=== PATIENT | female | born 1945 | race Caucasian/White ===

== ENCOUNTER 2022-06-12 05:31 | Inpatient (IN) ==
[~2022-06-12 05:31] MED LIST: VANCOMYCIN INJ 1,000 MG in SODIUM CHLORIDE 0.9% 250 ML IV ONE
[2022-06-12] MEDS ORDERED: VANCOMYCIN INJ 1,000 MG in SODIUM CHLORIDE 0.9% 250 ML IV ONE (06:00)
[2022-06-12] MEDS ORDERED: GABAPENTIN 400 MG CAPSULE PO ONE (07:41)
[2022-06-12] MEDS ORDERED: DIAZEPAM 5 MG TABLET PO ONE (07:41)
[2022-06-12] MEDS ORDERED: ACETAMINOPHEN 500 MG TABLET PO ONE (07:41)
[2022-06-12] MEDS ORDERED: FAMOTIDINE 20 MG TABLET PO ONE (07:41)
[2022-06-12] MEDS ORDERED: LACTATED RINGERS 1,000 ML IV SCH (08:00)
[2022-06-12] MEDS ORDERED: BUPIVACAINE 0.5% 50 ML VIAL ONE (08:47)
[2022-06-12] MEDS ORDERED: buprenorphine HCL 0.3 MG/ML VIAL ONE (10:12)
[2022-06-12] MEDS ORDERED: TRANEXAMIC ACID 1,000 MG/10 ML VIAL ONE (10:46)
[2022-06-12] MEDS ORDERED: KETAMINE 500 MG/10 ML VIAL ONE (10:49)
[2022-06-12] MEDS ORDERED: SODIUM CHLORIDE 0.9% 1,000 ML IV ONE (10:52)
[2022-06-12] MEDS ORDERED: DEXMEDETOMIDINE 200 MCG/2 ML VIAL ONE (10:52)
[2022-06-12] MEDS ORDERED: SODIUM CHLORIDE 0.9% 250 ML IV ONE (10:52)
[2022-06-12] MEDS ORDERED: PROMETHAZINE 25 MG/1 ML VIAL IM PRN (11:49)
[2022-06-12] MEDS ORDERED: diphenhydrAMINE CAP 25 MG CAPSULE PO PRN (11:49)
[2022-06-12] MEDS ORDERED: MORPHINE 2 MG/1 ML SYRINGE IV PRN ×2 (11:49→13:05)
[2022-06-12] MEDS ORDERED: LACTULOSE 20 GM/30 ML UDCUP PO PRN (11:49)
[2022-06-12] MEDS ORDERED: BISACODYL 10 MG SUPP RECTAL PRN (11:49)
[2022-06-12] MEDS ORDERED: TEMAZEPAM 7.5 MG CAPSULE PO PRN (11:49)
[2022-06-12] MEDS ORDERED: MAGNESIUM HYDROXIDE SUSP 30 ML UDCUP PO PRN (11:49)
[2022-06-12] MEDS ORDERED: CETIRIZINE 10 MG TABLET PO PRN (11:51)
[2022-06-12] MEDS ORDERED: traMADol 50 MG TABLET PO PRN (11:51)
[2022-06-12] MEDS ORDERED: ACETAMINOPHEN 325 MG TABLET PO PRN (11:51)
[2022-06-12] MEDS ORDERED: BUPIVACAINE SPINAL 0.75% 2 ML AMP SPINAL ONE (12:03)
[2022-06-12] MEDS ORDERED: DEXAMETHASONE 4 MG/1 ML VIAL ONE (12:03)
[2022-06-12] MEDS ORDERED: ePHEDrine 50 MG/ML VIAL ONE (12:09)
[2022-06-12] MEDS: ceFAZolin 2,000 MG/50 ML DUPLEX IV SCH (16:45)
[2022-06-12] MEDS: busPIRone 5 MG TABLET PO SCH (21:33)
[2022-06-12] MEDS: rOPINIRole 0.25 MG TABLET PO SCH (21:33)
[2022-06-12] MEDS: DOCUSATE SODIUM 100 MG CAPSULE PO SCH (21:34)
[2022-06-12] MEDS: SIMVASTATIN 40 MG TABLET PO SCH (21:34)
[2022-06-12] MEDS: NON-FORMULARY MEDICATION (Mirabegron [Myrbetriq] 25 mg Tablet Extended Release 24 Hr) PO SCH (21:37)
[2022-06-13] MEDS: ONDANSETRON 4 MG/2 ML VIAL IV PRN ×3 (03:35→21:29)
[2022-06-13] MEDS: ceFAZolin 2,000 MG/50 ML DUPLEX IV SCH (03:42)
[2022-06-13 04:53] LABS: Basophils % 0.1 % (0.0-0.8); Hematocrit 39.7 VOL% (35.7-47.0); Hemoglobin 12.6 GM/DL (12.0-16.0); Immature Granulocytes % 0.6 %; Immature Granulocytes Absolute 0.06 #; Lymphocytes # 0.4 10*3/uL (1.4-4.0); Lymphocytes % 4.3 % (21.3-54.2); Mean Corpuscular HGB Conc 31.7 GM/DL (32-36); Mean Corpuscular Volume 90.4 FL (87-102); Mean Platelet Volume 11.1 FL (9.6-12.0); Monocytes # 0.6 10*3/uL (0.11-0.8); Monocytes % 5.9 % (1.7-12.7); Neutrophils % 89.1 % (38.7-73.9); Platelet Count 172 T/CUMM (130-400); Red Blood Count 4.39 MC/CUMM (3.8-5.5); Red Cell Distribution Width 13.7 % (9.3-17.3); White Blood Count 10.1 T/CUMM (4-12)
[2022-06-13 05:18] LABS: Band Neutrophils 1 % (0-10); Lymphocytes 5 % (20-55); Total Cells Counted 100
[2022-06-13 05:19] LABS: Microcytosis Slight; Ovalocytes Slight; Platelet Estimate Adequate
[2022-06-13] MEDS: FONDAPARINUX 2.5 MG/0.5 ML SYRINGE SUBCUT SCH (05:45)
[2022-06-13 07:29] LABS: Calcium 9.1 MG/DL (8.5-10.1); Osmolality,Calculated 286.1 MOS/KG (273-304); Potassium 3.7 MMOL/L (3.5-5.1)
[2022-06-13] MEDS ORDERED: CETIRIZINE 10 MG TABLET PO ONE (08:30)
[2022-06-13] MEDS: DOCUSATE SODIUM 100 MG CAPSULE PO SCH ×2 (08:39→21:29)
[2022-06-13] MEDS: LOSARTAN 50 MG TABLET PO SCH (08:39)
[2022-06-13] MEDS: PANTOPRAZOLE 40 MG TABLET PO SCH (08:39)
[2022-06-13] MEDS: busPIRone 5 MG TABLET PO SCH ×2 (08:39→21:28)
[2022-06-13] MEDS: MAGNESIUM CHLORIDE 64 MG TABLET PO SCH (08:39)
[2022-06-13] MEDS: amLODIPine 5 MG TABLET PO SCH (08:39)
[2022-06-13] MEDS: ASPIRIN EC 81 MG TABLET PO SCH (08:39)
[2022-06-13] MEDS ORDERED: ACETAMINOPHEN 325 MG TABLET PO PRN (11:50)
[2022-06-13] MEDS ORDERED: CETIRIZINE 10 MG TABLET PO SCH (21:00)
[2022-06-13] MEDS: rOPINIRole 0.25 MG TABLET PO SCH (21:29)
[2022-06-13] MEDS: SIMVASTATIN 40 MG TABLET PO SCH (21:29)
[2022-06-13] MEDS: NON-FORMULARY MEDICATION (Mirabegron [Myrbetriq] 25 mg Tablet Extended Release 24 Hr) PO SCH (21:32)
[2022-06-14] MEDS: FONDAPARINUX 2.5 MG/0.5 ML SYRINGE SUBCUT SCH (06:35)
[2022-06-14] MEDS: amLODIPine 5 MG TABLET PO SCH (08:03)
[2022-06-14] MEDS: LOSARTAN 50 MG TABLET PO SCH (08:03)
[2022-06-14] MEDS: PANTOPRAZOLE 40 MG TABLET PO SCH (08:03)
[2022-06-14] MEDS: DOCUSATE SODIUM 100 MG CAPSULE PO SCH (08:03)
[2022-06-14] MEDS: busPIRone 5 MG TABLET PO SCH (08:03)
[2022-06-14] MEDS: MAGNESIUM CHLORIDE 64 MG TABLET PO SCH (08:03)
[2022-06-14] MEDS: ASPIRIN EC 81 MG TABLET PO SCH (08:04)
[2022-06-14] MEDS: ONDANSETRON 4 MG/2 ML VIAL IV PRN (08:05)
[2022-06-14 16:18] VITALS: BP 115/60
[2022-06-19] MEDS ORDERED: CHOLECALCIFEROL 50000 UNIT PO SCH (09:00)
== END 2022-06-14 18:15 | disposition swing bed (61) | DRG 470 ==
LOC: N.OR 05:31 → N.SDSINP 05:32 → N.3E 11:49
PROVIDERS: ADMIT Orthopaedic Surgery; ATTEND Orthopaedic Surgery